=== PATIENT | female | born 1980 | race Caucasian/White ===

== ENCOUNTER 2019-07-18 19:34 | Observation (INO) | payer OTHER ==
--- NOTE | 2019-07-18 20:21 | ED ---
Neurological HPI - HPI Summary HPI Summary: 39-year-old female with a significant past medical history of chronic back pain and status post cholecystectomy, tubal ligation, uterine polypectomy presents to emergency department today as a transfer from [place] emergency Department for evaluation of a syncopal episode she had this afternoon. Patient states 4 days ago she began having right eye twitching and headaches which lasted minutes the posterior aspect of her head. Today she states she was in class when she had another venous headaches and her vision became blurry which she describes as Vaseline in my eyein the right eye. She states she stood up to leave to rinse her eye and then syncopized in her classroom. She does not recall if she lost consciousness however she does not recall the event. She reports no trauma sustained during her syncopal episode. She denies incontinence , or confusion after her event. She is complaining of continued blurry vision in the right eye but has no other complaints and has no physical pain. She endorses a past medical history of migraines and states she has not had one in a very long time. Last menstrual period was one week ago. She denies personal or family history of demyelinating disease, dysrhythmia, CVA. at the [facility] laboratory studies were obtained including a CBC which was normal. A CMP which revealed a chloride of 112, anion gap of 5, AST 14. Urine hCG was negative. Urinalysis was negative for signs of UTI. CT without contrast the brain was negative for signs of infarct or bleed. - History of Current Complaint Chief Complaint: EDGeneral Stated Complaint: NEURO EVAL PER EMS Time Seen by Provider: 07/18/19 19:49 Hx Obtained From: Patient Hx Last Menstrual Period: 05/29/14 Onset/Duration: Gradual Onset Timing: Constant Onset Severity: Mild Current Severity: Mild Pain Intensity: 7 Pain Scale Used: 0-10 Numeric Character: Sharp, Throbbing, Visual Changes Syncope Context: Witnessed Frequency: Episodes x___ - 1 Aggravating: Headaches Alleviating: Rest Associated Signs and Symptoms: Positive: Visual Changes, Headache, Loss of Consciousness. Negative: Memory Loss, Confusion, Agitation, Weakness, Decreased Level of Consciousness, Pain, Impaired Speech, Numbness, Incontinent Bladder/Bowel, Lightheadness, Nausea/Vomiting, Neck Pain/Stiffness, Diarrhea, Chest Pain, Shortness of Breath, Palpitations, Epistaxis, Change in Diet, OTC Meds, Depression, Anxiety, Emotional Distress - Allergy/Home Medications Allergies/Adverse Reactions: Allergies Allergy/AdvReac Type Severity Reaction Status Date / Time latex Allergy Hives Verified 07/19/19 01:56 Penicillins Allergy Hives Verified 07/19/19 01:56 Sulfa (Sulfonamide Allergy Hives Verified 07/19/19 01:56 Antibiotics) Home Medications: Home Medications Cyclobenzaprine TAB* [Flexeril 10 MG TAB*] 10 mg PO DAILY 07/18/19 [History Confirmed 07/18/19] Gabapentin CAP(*) [Neurontin 100 mg CAP(*)] 300 mg PO TID 07/18/19 [History Confirmed 07/18/19] Oxycodone IR 10 MG(NF) 1 - 2 tab PO Q6H 07/18/19 [History Confirmed 07/18/19] oxyCODONE SR TAB(*) [Oxycontin 20 mg (*)] 20 mg PO BID 07/18/19 [History Confirmed 07/18/19] PMH/Surg Hx/FS Hx/Imm Hx Endocrine/Hematology History: Denies: Hx Diabetes, Hx Thyroid Disease Cardiovascular History: Denies: Hx Hypertension, Hx Pacemaker/ICD Respiratory History: Denies: Hx Asthma Sensory History: Denies: Hx Hearing Aid Psychiatric History: Denies: Hx Panic Disorder - Surgical History Surgery Procedure, Year, and Place: (2) D&C, TUBAL LIGATION, T&A, LITHOTRIPSY Infectious Disease History: No Infectious Disease History: Denies: Traveled Outside the [place] in Last 30 Days - Social History Alcohol Use: None Substance Use Type: Reports: None Smoking Status (MU): Heavy Every Day Tobacco Smoker Type: Cigarettes Amount Used/How Often: 1/2 pack day Review of Systems Constitutional: Negative Positive: Blurred Vision. Negative: Photophobia, Diplopia, Drainage ENT: Negative Cardiovascular: Negative Respiratory: Negative Gastrointestinal: Negative Genitourinary: Negative Musculoskeletal: Negative Skin: Negative Positive: Headache, Syncope. Negative: Weakness, Paresthesia, Numbness, Slurred Speech Psychological: Normal All Other Systems Reviewed And Are Negative: Yes Physical Exam Triage Information Reviewed: Yes Vital Signs On Initial Exam: Initial Vitals Temp Pulse Resp BP Pulse Ox 98.7 F 86 16 131/88 97 07/18/19 19:43 07/18/19 19:43 07/18/19:43 07/18/19 19:43 07/18/19 19:43 Vital Signs Reviewed: Yes Appearance: Positive: Well-Appearing, No Pain Distress, Well-Nourished, Obese. Negative: Signs of Trauma Skin: Positive: Warm, Skin Color Reflects Adequate Perfusion Head/Face: Positive: Normal Head/Face Inspection Eyes: Positive: EOMI, CIRILO, Conjunctiva Clear, Conjunctiva Inflammed, Other: - Visual acuity is 20/20 in the left eye and 20/70 in the right eye and 20/30 with both eyes. She has significantly decreased field of vision in her peripheral view however she has reserved central vision in the right eye. There are no abnormalities left eye. Funduscopic exam revealed no abnormalities bilaterally. ENT: Positive: Hearing grossly normal Neck: Positive: Nontender Respiratory/Lung Sounds: Positive: Clear to Auscultation, Breath Sounds Present Cardiovascular: Positive: RRR, S1, S2 Abdomen Description: Positive: Nontender, Soft Bowel Sounds: Positive: Present Neurological: Positive: Sensory/Motor Intact, Alert, Oriented to Person Place, Time, CN Intact II-III, Reflexes Intact, Normal Gait, Heel to Toe, Finger to Nose, Facial Symmetry, Speech Normal. Negative: Receptive Aphasia, Expressive Aphasia, Cerebellar Dysfunction, EOM Palsy, Slurred Speech, Ataxic Gait, Pronator Drift Present Psychiatric: Positive: Normal AVPU Assessment: Alert Procedures - Sedation Patient Received Moderate/Deep Sedation with Procedure: No Diagnostics - Vital Signs Vital Signs Temp Pulse Resp BP Pulse Ox 07/18/19 19:43 98.7 F 86 16 131/88 97 - Laboratory Lab Statement: Any lab studies that have been ordered have been reviewed, and results considered in the medical decision making process. Course/Dx - Course Course Of Treatment: Patient was evaluated in the emergency department today as a transfer from [place] emergency department after a syncopal episode this afternoon. The patient was seen and examined. Physical exam revealed visual field deficits in the right eye but no other focal neurological deficits. Visual acuity in the left eye was 20/20 in visual acuity in the right eye was 20 /70 visual acuity in both eyes 20/30. Laboratory studies were done at [facility] department including a CBC which was normal, a CMP which revealed a chloride of 112, anion gap of 5, AST of 14. BUNs 7, creatinine 0.8, estimated GFR is 84.9. Urine hCG was negative. Urinalysis is negative for signs of UTI. CT without contrast the brain was negative for signs of infarct or bleed. The neurologist Dr. Le was consulted and recommended getting and ESR and a CTA of head and neck invested possible LVO. ESR normal at 5, not indicating temporal arteritis. he suggested starting the patient on aspirin 325. Dr. Julio, ophthalmology, was consulted at 2209 and stated he felt there was no acute emergency and he could examine her in his clinic at a later time for further evaluation. CTA of the brain and neck came back showing no evidence of LVO or other pathology. Dr. Le suggested admitting the patient due to her acute visual change for follow up with an MRI in the morning. He will evaluate the patient in the morning as well. Hospitalist, Dr. La came to evaluate the patient for admisison at 0107 in 07/19/19. - Differential Dx Differential Diagnoses Neuro: Positive: Anxiety, Cerebrovascular Accident, Seizure Disorder, Trauma, Other - Retinal artery occlusion, retinal vein occlusion, retinal detachment, CVA, TIA, temporal arteritis, and Restasis, multiple sclerosis. - Diagnoses Provider Diagnoses: Syncope, Vision blurred - Physician Notifications Discussed Care Of Patient With: Montana Le Instructed by Provider To: Admit As Inpatient Discharge ED - Sign-Out/Discharge Documenting (check all that apply): Patient Departure - Discharge Plan Condition: Stable Disposition: ADMITTED TO [facility] Referrals: Irina Collazo [Nurse Practitioner] - - Billing Disposition and Condition Condition: STABLE Disposition: Admitted to [facility]
--- OUTSIDE RECORDS SUMMARY | 2019-07-18 20:54 | XMS REPORT | Continuity of Care Document ---
:1980 External Reference #:[id number] Author Name Garo Herrera MD,FACS Address [address] [place] [id number] Care Team Providers Name Role Phone Shilpa Ron NP - Nurse Care Team Information Personal Financial Advisor [phone] Practitioner Montana Call MD - Emergency Medicine Care Team Information Personal Financial Advisor [phone] Problems Active Problems Provider Date Disorder of menstruation Karla Brush MD Onset: 07/19/2011 Migraine variants, not intractable Karla Brush MD Onset: 07/19/2011 Backache Karla Brush MD Onset: 07/19/2011 Tobacco user Shilpa Ron FNP Onset: 04/13/2018 Migraine with typical aura Shilpa Ron FNP Onset: 04/13/2018 H/O: urinary stone Shilpa Ron FNP Onset: 04/13/2018 Gallstone Garo Herrera MD,FACS Onset: 06/01/2019 Gastroesophageal reflux disease Shilpa Ron FNP Onset: 12/08/2018 Social History Type Date Description Comments Sex Unknown ETOH Use Denies alcohol use Tobacco Use Start: Unknown Heavy tobacco smoker (more started smoking age than 10 cigarettes/day) 15, quit for 8 years in her 20's using OTC patches Smoking Status Reviewed: 05/09/19 Heavy tobacco smoker (more started smoking age than 10 cigarettes/day) [age], quit for 8 years in her 20's using OTC patches Allergies, Adverse Reactions, Alerts Active Allergies Reaction Severity Comments Date Penicillin 04/13/2018 Sulfa Drugs 04/13/2018 Latex 04/13/2018 Medications Active Medications SIG Qnty Indications Ordering Date Provider Gabapentin 3 tabs by Unknown 100mg Capsules mouth every day Oxycontin 1 tab by mouth Vivek Mckeon MD 10mg Tab ER 12H twice a day Abuse-Det Oxycodone HCL ER Take 1-2 Vivek Mckeon MD 10mg Tab tablets every ER 12H Abuse-Det 6-8 hours Cyclobenzaprine HCL 1 by mouth once Unknown 10mg a day Tablets Valium take 2 tab Unknown 5mg Tablets prior to dental exam Sucralfate take one tablet 120tabs Clune, 1gm Tablets four times a , . [employer]OR Ondansetron HCL Unknown 4mg Tablets Immunizations CPT Code Status Date Vaccine Lot # [id number] Given 06/14/2018 Tdap injection [id number] Given 06/23/2011 flu vaccination 15675 Given 06/23/2011 flu vaccination [id number] Given 05/10/2009 flu vaccination Vital Signs Date Vital Result Comment 07/05/2019 9:03am BP Systolic 121 mmHg BP Diastolic 80 mmHg Heart Rate 95 /min Height 66 inches 5'6" Weight 203.00 lb BMI (Body Mass Index) 32.8 kg/m2 BSA (Body Surface Area) 2.01 m2 Rocky body weight in kilograms 59 kg O2 % BldC Oximetry 97 % 06/01/2019 9:22am BP Systolic 116 mmHg BP Diastolic 80 mmHg Body Temperature 98.4 F Heart Rate 126 /min Height 66 inches 5'6" Weight 205.00 lb BMI (Body Mass Index) 33.1 kg/m2 BSA (Body Surface Area) 2.02 m2 Rocky body weight in kilograms 59 kg O2 % BldC Oximetry 98 % Results Test Acquired Date Facility Test Result H/L Range Note Ua RFX Micro & 05/30/2019 PSYCHIATRIC Urine Color Light-Yellow Yellow 1 Culture II [address] [place] [address] [phone] Urine Clarity Clear Clear Urine Glucose - Dipstick NEGATIVE mg/dL Negative Urine Bilirubin - Dipstick NEGATIVE Negative Urine Ketone NEGATIVE mg/dL Negative Urine Specific [place] 1.011 Normal 1.010-1.030 Urine Blood NEGATIVE 0-2 Urine PH 7.5 Normal 6.5-7.5 Urine Protein - Dipstick NEGATIVE mg/dL Negative Urine Urobilinogen - Dipstick < 2.0 mg/dL < 2.0 Urine Nitrite - Dipstick NEGATIVE Negative Urine Leuk Esterase NEGATIVE Negative Source: URINE, CLEAN CAT <SEE NOTE> 2 CBC W/Automated 05/30/2019 PSYCHIATRIC White Blood 10.3 K/uL Normal 3.1-10.[address] [place] [address] [phone] Red Blood Count 5.26 M/uL Normal 3.90-5.40 Hemoglobin 15.1 gm/dL Normal 11.6-15.8 Hematocrit 44.4 % Normal 36.0-46.1 Mean Cell Volume 84.4 fl Normal 80.9-99.0 Mean Corpuscular HGB 28.7 pg Normal 25.9-32.7 Mean Corpuscular HGB Conc 34.0 g/dL Normal 30.8-34.3 Platelet Count 322 K/uL Normal 155-360 Red Cell Distri Width SD 41.1 fl Normal 36-47 Red Cell Distri Width %CV 13.3 % Normal 11.7-14.4 Mean Platelet Volume 9.9 fl Normal 8.9-12.4 Neut% 65.5 % Normal 40.4-72.8 Lymph % 24.0 % Normal 20.0-42.0 Cameron % 7.8 % Normal 4.3-13.2 Eo% 1.7 % Normal 0.0-6.6 Bas% 0.6 % Normal 0.0-1.1 Immature Grans 0.4 % Normal 0.0-5.0 NRBC % 0.0 /100WBC < 10/ 100 WBC Neut# 6.75 K/uL Normal 1.8-7.0 Lymph # 2.47 K/uL Normal 1.0-4.0 Cameron # 0.80 K/uL Normal 0.3-0.9 Eos # 0.17 K/uL Normal 0.0-0.5 Baso # 0.06 K/uL Normal 0.0-0.1 Immature Grans Absolute 0.04 K/uL NRBC # 0.00 K/uL Comprehensive Metabolic 05/30/2019 PSYCHIATRIC Glucose 137 mg/dL High 74-106 Panel [address] [place], [place] [id number] [phone] BUN 10 mg/dL Normal 7-18 Creatinine 1.0 mg/dL Normal 0.6-1.3 Glom Filtration Rate, Estimate >60 mL/min >60 If >60 mL/min >60 3 BUN/Creat 10.0 ratio Sodium 138 mmol/L Normal 136-145 Potassium 3.8 mmol/L Normal 3.5-5.1 Chloride 104 mmol/L Normal 98-107 Carbon Dioxide 27 mmol/L Normal 21-32 Anion Gap 7 mEq/L Low 8-16 Calcium 8.9 mg/dL Normal 8.5-10.1 Total Protein 7.9 g/dL Normal 6.4-8.2 Albumin 3.6 g/dL Normal 3.4-5.0 Globulin 4.3 g/dL Normal 1.9-4.3 Alb/Glob 0.8 ratio Bilirubin,Total 0.2 mg/dL Normal 0.2-1.0 Sgot/Ast 11 U/L Low 15-37 4 SGPT/Alt 16 U/L Normal 12-78 Alkaline Phosphatase 71 U/L Normal 45-117 Laboratory test finding 05/30/2019 PSYCHIATRIC Lipase 80 U/L Normal 56-289 [address] [place] [address] [phone] HCG,Serum (Qualitative) NEGATIVE (Negative) 5 Comprehensive 05/09/2019 [facility] Fabiola Glucose 101 mg/dL Normal 74- 106 6 Metabolic Panel [address] [place] [address] [phone] BUN 12 mg/dL Normal 7-18 Creatinine 0.8 mg/dL Normal 0.6-1.3 Glom Filtration Rate, Estimate >60 mL/min >60 If >60 mL/min >60 7 BUN/Creat 15.0 ratio Sodium 136 mmol/L Normal 136-145 Potassium 4.2 mmol/L Normal 3.5-5.1 Chloride 102 mmol/L Normal 98-107 Carbon Dioxide 27 mmol/L Normal 21-32 Anion Gap 7 mEq/L Low 8-16 Calcium 8.9 mg/dL Normal 8.5-10.1 Total Protein 7.7 g/dL Normal 6.4-8.2 Albumin 3.6 g/dL Normal 3.4-5.0 Globulin 4.1 g/dL Normal 1.9-4.3 Alb/Glob 0.9 ratio Bilirubin,Total 0.2 mg/dL Normal 0.2-1.0 Sgot/Ast 17 U/L Normal 15-37 SGPT/Alt 22 U/L Normal 12-78 Alkaline Phosphatase 62 U/L Normal 45-117 Laboratory test finding 05/09/[address] [facility] [address] Lipase 94 U/L Normal 56-289 [address] [place] [address] [phone] Amylase 53 U/L Normal 25-115 H Pylori,Igm,Igg,Iga 05/09/[address] Helicobacter 0.51 0.00- 0.79 8 Antibodies [address] [facility] Pylori, Igg u/mL [place], [place] [id number] [phone] Helicobacter Pylori, Iga Abs < 9.0 units 0.0-8.9 9 Helicobacter Pylori, Igm Abs < 9.0 units 0.0-8.9 10 Urine Dipstick 05/09/2019 [facility] Ua Color yellow Yellow Ua Clarity clear Clear Ua Leuko negative Negative Ua Nitrite negative Negative Ua Urobilinogen 0.2 0.2 - 1.0 E.U./dL Ua Protein negative Negative Ua PH 8.5 High 6.5-7.5 Ua Blood 10 Gael/uL High Negative Ua Specific [place] 1.010 1.010-1.030 Ua Ketones negative Negative Ua Bilirubin negative Negative Ua Glucose negative Negative 1 GALLBLADDER PAIN AND SWELLING 2 URINE, CLEAN CATCH 3 Note: Persistent reduction for 3 months or more in an eGFR <60 mL/min/1.73 m2 defines CKD. Patients with eGFR values >/=60 mL/min/1.73 m2 may also have CKD if evidence of persistent proteinuria is present. The original MDRD equation for estimated GFR is not valid for patients less than 18 years of age. Additional information may be found at www.kdoqi.org. 4 Values below the stated reference ranges of AST and ALT can be seen in normal populations. Clinical correlation is suggested. 5 Method: [employer] One-Step Immunoassay 6 R10.11 7 Note: Persistent reduction for 3 months or more in an eGFR <60 mL/min/1.73 m2 defines CKD. Patients with eGFR values >/=60 mL/min/1.73 m2 may also have CKD if evidence of persistent proteinuria is present. The original MDRD equation for estimated GFR is not valid for patients less than 18 years of age. Additional information may be found at www.kdoqi.org. 8 INFCE Result Units: Index Value Negative <0.80 Equivocal 0.80 - 0.89 Positive >0.89 9 Negative <9.0 Equivocal 9.0 - 11.0 Positive >11.0 10 Negative <9.0 Equivocal 9.0 - 11.0 Positive >11.0 This test was developed and its performance characteristics determined by [employer]. It has not been cleared or approved by the Food and Drug Administration. Performed at: - [address] [id number] Agricultural Technician: Staci Moreira MD, Phone: [phone] Procedures Date Code Description Status 06/16/2019 44358 Laparoscopy; cholecystectomy Completed 05/19/2019 87798160 Mammogram Completed Medical Devices Description No Information Available Encounters Type Date Location Provider Dx Diagnosis Office Visit 06/01/2019 Surgical Office Garo Herrera, K80.20 Calculus of 9:00a [employer] gallbladder w/o cholecystitis w/o obstruction Office Visit 05/09/2019 Family Medicine Clune, R10.11 Right upper quadrant 11:[address] [place], pain [employer]OR R11.2 Nausea with vomiting, unspecified Assessments Date Code Description Provider 07/05/2019 K80.20 Calculus of gallbladder without Garo Herrera MD,LANEY cholecystitis without obstruction 06/16/2019 K80.20 Calculus of gallbladder without Garo Herrera MD,LANEY cholecystitis without obstruction 06/01/2019 K80.20 Calculus of gallbladder without Garo Herrera MD,LANEY cholecystitis without obstruction 05/30/2019 R10.811 Right upper quadrant abdominal Garo Herrera MD,LANEY tenderness 05/30/2019 K80.50 Calculus of bile duct without Garo Herrera MD,LANEY cholangitis or cholecystitis without obstruction 05/30/2019 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 healing well, doing well. pathology report was reviewed and discussed with the patient. RTC prn Functional Status Functional Condition Comment Date Status Contacts Active Complete Dentures Active Mental Status Description No Information Available Referrals Refer to Dr Reason for Referral Status Appt Date Garo Herrera MD 38YOF with RUQ - U/S shows gallstones but no Closed 06/01 acute cholecystitis. [address] [place] [address] [phone]
--- OUTSIDE RECORDS SUMMARY | 2019-07-18 20:54 | XMS REPORT | Continuity of Care Document ---
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 VESNA Ondansetron HCL Unknown 4mg Tablets Immunizations CPT Code Status Date Vaccine Lot # [id number] Given 06/14/2018 Tdap injection [id number] 26043 Given 06/23/2011 flu vaccination 67673 Given 06/23/2011 flu vaccination 31770 Given 05/10/2009 flu vaccination Vital Signs Date Vital Result Comment 06/01/2019 9:22am BP Systolic 116 mmHg BP Diastolic 80 mmHg Body Temperature 98.4 F Heart Rate 126 /min Height 66 inches 5'6" Weight 205.00 lb BMI (Body Mass Index) 33.1 kg/m2 BSA (Body Surface Area) 2.02 m2 [place] body weight in kilograms 59 kg O2 % BldC Oximetry 98 % 05/09/2019 11:47am BP Systolic 120 mmHg BP Diastolic 74 mmHg Body Temperature 98.8 F Heart Rate 133 /min Respiratory Rate 18 /min Height 66 inches 5'6" Weight 209.12 lb BMI (Body Mass Index) 33.7 kg/m2 BSA (Body Surface Area) 2.04 m2 [place] body weight in kilograms 59 kg O2 % BldC Oximetry 93 % Results Test Date Facility Test Result H/L Range Note Ua RFX Micro & 05/30/2019 [facility] Urine Color Light-Yellow Yellow 1 Culture II [address] [place] [address] [phone] Urine Clarity Clear Clear Urine Glucose - Dipstick NEGATIVE mg/dL Negative Urine Bilirubin - Dipstick NEGATIVE Negative Urine Ketone NEGATIVE mg/dL Negative Urine Specific [place] 1.011 Normal 1.010-1.030 Urine Blood NEGATIVE 0-2 Urine PH 7.5 Normal 6.5-7.5 Urine Protein - Dipstick NEGATIVE mg/dL Negative Urine Urobilinogen - Dipstick < 2.0 mg/dL < 2.0 Urine Nitrite - Dipstick NEGATIVE Negative Urine Leuk Esterase NEGATIVE Negative Source: URINE, CLEAN CAT <SEE NOTE> 2 CBC W/Automated 05/30/2019 [facility] White Blood 10.3 K/uL Normal 3.1-10.[address] [place], [place] [id number] [phone] Red Blood Count 5.26 M/uL Normal 3.90-5.40 [...] 40.4-72.8 Lymph % 24.0 % Normal 20.0-42.0 [place] % 7.8 % Normal 4.3-13.2 Eo% 1.7 % Normal 0.0-6.6 Bas% 0.6 % Normal 0.0-1.1 Immature Grans 0.4 % Normal 0.0-5.0 NRBC % 0.0 /100WBC < 10/ 100 WBC Neut# 6.75 K/uL Normal 1.8-7.0 Lymph # 2.47 K/uL Normal 1.0-4.0 [place] # 0.80 K/uL Normal 0.3-0.9 Eos # 0.17 K/uL Normal 0.0-0.5 Baso # 0.06 K/uL Normal 0.0-0.1 Immature Grans Absolute 0.04 K/uL NRBC # 0.00 K/uL Comprehensive Metabolic 05/30/2019 [facility] Glucose 137 mg/dL High 74-106 Panel [address] [place] [address] [phone] BUN 10 mg/dL Normal 7-18 Creatinine 1.0 [...] U/L Normal 45-117 Laboratory test finding 05/30/2019 [facility] Lipase 80 U/L Normal 56-289 [address] [place] [address] [phone] HCG,Serum (Qualitative) NEGATIVE (Negative) 5 Comprehensive 05/09/[address] [facility] [address] Glucose 101 mg/dL Normal 74- 106 6 Metabolic Panel [address] [place] [address] [phone] BUN 12 mg/dL Normal 7-18 Creatinine 0.8 [...] U/L Normal 45-117 Laboratory test finding 05/09/[address] [facility] [address] Lipase 94 U/L Normal 56-289 [address] [place] [address] [phone] Amylase 53 U/L Normal 25-115 H Pylori,Igm,Igg,Iga 05/09/[address] [facility] [address] Helicobacter 0.51 0.00- 0.79 8 Antibodies 40[address] [facility] Pylori, Igg u/[place] [address] [phone] Helicobacter Pylori, Iga Abs < 9.0 units 0.0-8.9 9 Helicobacter Pylori, Igm Abs < 9.0 units 0.0-8.9 10 Urine Dipstick 05/09/2019 [facility] Ua Color yellow Yellow Ua Clarity clear Clear Ua Leuko negative Negative Ua Nitrite negative Negative Ua Urobilinogen 0.2 0.2 - 1.0 E.U./dL Ua Protein negative Negative Ua PH 8.5 High 6.5-7.5 Ua Blood 10 Gael/uL High Negative Ua Specific [place] 1.010 1.010-1.030 Ua Ketones negative Negative Ua [...] populations. Clinical correlation is suggested. 5 Method: [employer] One-Step Immunoassay 6 R10.11 7 Note: Persistent [...] developed and its performance characteristics determined by [employer]. It has not been cleared or approved by the Food and Drug Administration. 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 R11.2 Nausea with vomiting, unspecified Office 12/08/2018 [facility] [place] K21.9 Gastro-esophageal Visit 1:15p [facility] [place] VESNA Massey reflux disease RD without esophagitis R10.11 Right upper quadrant pain M54.5 Low back pain Assessments Date Code Description Provider 06/01/2019 K80.20 Calculus of gallbladder without Garo Herrera MD,FACS cholecystitis without obstruction 05/09/2019 R10.11 Right upper quadrant pain Shilpa Ron FNP 05/09/2019 R11.2 Nausea with vomiting, unspecified Shilpa Ron FNP 12/08/2018 K21.9 Gastro-esophageal reflux disease without Shilpa Ron FNP esophagitis 12/08/2018 R10.11 Right upper quadrant pain Shilpa Ron FNP 12/08/2018 M54.5 Low back pain Shilpa Ron FNP Plan of Treatment Future Appointment(s):06/09/2019 1:15 pm - Shilpa Ron FNP at [facility] RD06/01/2019 - Garo Herrera MD,FACSK80.20 Calculus of gallbladder without cholecystitis without obstructionComments:i discussed the options with her and she would like to undergo"laparoscopic cholecystectomy with cholangiography, possible open"Risks and benefits of the procedure were discussed with the patient. Risks include, but are not limited to, infection, bleeding, organ or tissue damage or malfunction, allergy, and potentially . Patient understood and agreed to the procedure.before surgery, we will needrecommendation from her pain management clinic on what to use for pain control after surgery or whether they would like to provide her with prescription is up to them Functional Status Functional Condition Comment Date Status Contacts Active Complete Dentures Active Mental Status Description No Information Available Referrals Refer to Reason for Referral Status Appt Date Garo Herrera MD 38YOF with RUQ - U/S shows gallstones but no Scheduled acute cholecystitis. [address] [place] [address] [phone]
--- OUTSIDE RECORDS SUMMARY | 2019-07-18 20:54 | XMS REPORT | Continuity of Care Document ---
:1980 External Reference #:[id number] Author Name Garo Herrera MD,FACS (transmitted by agent of provider Sherylcj Crawford) Address [address] [place] [id number] Care Team Providers Name Role Phone Shilpa Ron NP - Nurse Care Team Information Rn Spine [phone] Practitioner [place] Call MD - Emergency Medicine Care Team Information Rn Spine Problems Active Problems Provider Date Disorder of [...] (more started smoking age than 10 cigarettes/day) 15/, quit for 8 years in her 20's [...] 120tabs Clune, 1gm Tablets four times a Nicholeniferlei, day. VESNA Ondansetron HCL Unknown 4mg Tablets Immunizations CPT Code Status Date Vaccine Lot # [id number] Given 06/14/2018 Tdap injection [id number] Given 06/23/2011 flu vaccination 56055 Given 06/23/2011 flu vaccination 48954 Given 05/10/2009 flu vaccination Vital Signs Date Vital Result Comment 06/01/2019 9:22am BP Systolic 116 mmHg BP Diastolic 80 mmHg Body Temperature 98.4 F Heart Rate 126 /min Height 66 inches 5'6" Weight 205.00 lb BMI (Body Mass Index) 33.1 kg/m2 BSA (Body Surface Area) 2.02 m2 [place] body weight in kilograms 59 kg O2 % BldC Oximetry 98 % 05/09/2019 11:47am BP Systolic 120 mmHg BP Diastolic 74 mmHg Body Temperature 98.8 F Heart Rate 133 /min Respiratory Rate 18 /min Height 66 inches 5'6" Weight 209.12 lb BMI (Body Mass Index) 33.7 kg/m2 BSA (Body Surface Area) 2.04 m2 [place] body weight in kilograms 59 kg O2 % BldC Oximetry 93 % Results Test Date Facility Test Result H/L Range Note Ua RFX Micro & 05/30/2019 [facility] Urine Color Light-Yellow Yellow 1 Culture II [address] [place] [address] [phone] Urine Clarity Clear Clear Urine Glucose - Dipstick NEGATIVE mg/dL Negative Urine Bilirubin - Dipstick NEGATIVE Negative Urine Ketone NEGATIVE mg/dL Negative Urine Specific [place] 1.011 Normal 1.010-1.030 Urine Blood NEGATIVE 0-2 Urine PH 7.5 Normal 6.5-7.5 Urine Protein - Dipstick NEGATIVE mg/dL Negative Urine Urobilinogen - Dipstick < 2.0 mg/dL < 2.0 Urine Nitrite - Dipstick NEGATIVE Negative Urine Leuk Esterase NEGATIVE Negative Source: URINE, CLEAN CAT <SEE NOTE> 2 CBC W/Automated 05/30/2019 [facility] White Blood 10.3 K/uL Normal 3.1-10.[address] [place] [address] [phone] Red Blood Count 5.26 M/uL Normal 3.90-5.40 [...] 40.4-72.8 Lymph % 24.0 % Normal 20.0-42.0 [place] % 7.8 % Normal 4.3-13.2 Eo% 1.7 % Normal 0.0-6.6 Bas% 0.6 % Normal 0.0-1.1 Immature Grans 0.4 % Normal 0.0-5.0 NRBC % 0.0 /100WBC < 10/ 100 WBC Neut# 6.75 K/uL Normal 1.8-7.0 Lymph # 2.47 K/uL Normal 1.0-4.0 [place] # 0.80 K/uL Normal 0.3-0.9 Eos # 0.17 K/uL Normal 0.0-0.5 Baso # 0.06 K/uL Normal 0.0-0.1 Immature Grans Absolute 0.04 K/uL NRBC # 0.00 K/uL Comprehensive Metabolic 05/30/2019 [facility] Glucose 137 mg/dL High 74-106 Panel [address] [place], [place] [address] [phone] BUN 10 mg/dL Normal 7-18 Creatinine 1.0 [...] U/L Normal 45-117 Laboratory test finding 05/30/2019 [facility] Lipase 80 U/L Normal 56-289 [address] [place], [place] [address] [phone] HCG,Serum (Qualitative) NEGATIVE (Negative) 5 Comprehensive 05/09/[address] [facility] [address] Glucose 101 mg/dL Normal 74- 106 6 Metabolic Panel [address] [place], [place] [address] [phone] BUN 12 mg/dL Normal 7-18 Creatinine 0.8 [...] U/L Normal 45-117 Laboratory test finding 05/09/[address] [facility] [address] Lipase 94 U/L Normal 56-289 [address] [place], [place] [address] [phone] Amylase 53 U/L Normal 25-115 H Pylori,Igm,Igg,Iga 05/09/[address] [facility] [address] Helicobacter 0.51 0.00- 0.79 8 Antibodies [address] [facility] Pylori, Igg u/mL [place], [place] [address] [phone] Helicobacter Pylori, Iga Abs < 9.0 units 0.0-8.9 9 Helicobacter Pylori, Igm Abs < 9.0 units 0.0-8.9 10 Urine Dipstick 05/09/2019 [facility] Ua Color yellow Yellow Ua Clarity clear Clear Ua Leuko negative Negative Ua Nitrite negative Negative Ua Urobilinogen 0.2 0.2 - 1.0 E.U./dL Ua Protein negative Negative Ua PH 8.5 High 6.5-7.5 Ua Blood 10 Gael/uL High Negative Ua Specific [place] 1.010 1.010-1.030 Ua Ketones negative Negative Ua [...] populations. Clinical correlation is suggested. 5 Method: [employer] One-Step Immunoassay 6 R10.11 7 Note: Persistent [...] developed and its performance characteristics determined by [employer]. It has not been cleared or approved by the Food and Drug Administration. 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 R11.2 Nausea with vomiting, unspecified Assessments Date Code Description Provider 06/16/2019 K80.20 Calculus of gallbladder without Garo Herrera MD,LANEY cholecystitis without obstruction 06/01/2019 K80.20 Calculus of gallbladder without Garo Herrera MD,FACS cholecystitis without obstruction 05/30/2019 R10.811 Right upper quadrant abdominal Garo Herrera MD,FACS tenderness 05/30/2019 K80.50 Calculus of bile duct without Garo Herrera MD,FACS cholangitis or cholecystitis without obstruction 05/30/2019 Z79.891 long-term (current) use of opiate Sharon, Garo, MD,FACS analgesic 05/30/2019 F17.210 Nicotine dependence, cigarettes, Garo Herrera MD,FACS uncomplicated 05/09/2019 R10.11 Right upper quadrant pain Nichole Rondawnarafi, VESNA 05/09/2019 R11.2 Nausea with vomiting, unspecified Shilpa Ron, VESNA Plan of Treatment 06/01/2019 - Garo Herrera MD,FACSK80.20 Calculus of gallbladder [...] her with prescription is up to them on 2019. i talked to Dr. Mckeon about the patient and his recommendation is to give her Oxycodone 10 mg po BID prn after surgery atotal of 10 tablets. Functional Status Functional Condition Comment Date Status Contacts Active Complete Dentures Active Mental Status Description No Information Available Referrals Refer to Reason for Referral Status Appt Date Garo Herrera MD 38YOF with RUQ - U/S shows gallstones but no Closed 06/01 acute cholecystitis. [address] [place] [address] [phone]
--- OUTSIDE RECORDS SUMMARY | 2019-07-18 20:54 | XMS REPORT | Continuity of Care Document ---
:1980 External Reference #:[id number] Author Name Vivek Mckeon DO MPH Address [address] [place] [address], [address] [place] [address] Care Team Providers Name Role Phone Elliott Evans M.D. 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 Problems Description No Information Available Social History Type Date Description Comments Sex Unknown Cigarette Use Current Cigarette Smoker 1/2 Pack Daily ETOH Use Denies alcohol use Tobacco Use Start: Unknown Patient is a current smoker, smokes every day Smoking Status Reviewed: 06/20/19 Patient is a current smoker, smokes every day Allergies, Adverse Reactions, Alerts Active Allergies Reaction Severity Comments Date Penicillin Urticaria 12/19/2014 Sulfa Antibiotics Urticaria 12/19/2014 Medications Active Medications SIG Qnty Indications Ordering Date Provider Gabapentin take 2-3 270caps Vivek Mckeon, 05/25/2018 100mg Capsules capsules by DO MPH mouth every 8 hours ud. chronic pain, titrating dose Oxycontin si by mouth 60tabs Vivek Mckeon, 05/25/2018 20mg Tab ER 12H every 12 hours DO, MPH Abuse-Det chronic pain patient Cyclobenzaprine HCL si by mouth 30tabs Vivek Mckeon, 05/13/2017 10mg every evening as DO, MPH Tablets directed chronic pain. Oxycodone HCL si-2 by mouth 180tabs Vivek Mckeon, 08/28/2015 10mg Tablets every 6 to 8 DO, MPH hours as directed chronic pain patient, dosage increase Valium si-2 by mouth Unknown 5mg Tablets 1 hour before procedure as directed prn Chantix Starting Month Unknown Waylon 0.5mg X 11 & 1 mg X 42 Tablets Sucralfate 1000mg four Unknown 1gm Tablets times a day Pantoprazole Sodium 1 by mouth every Unknown 40mg day Tablets DR Barbosa Description No Information Available Vital Signs Date Vital Result Comment 06/20/2019 9:37am BP Systolic 130 mmHg BP Diastolic 86 mmHg Heart Rate 84 /min Respiratory Rate 20 /min Height 66 inches 5'6" Weight 202.00 lb Pain Level 8 Pain at this time. Pain Level With Medicine 7 on average with meds Pain Level Without Medicine 9 without meds BMI (Body Mass Index) 32.6 kg/m2 05/24/2019 10:03am BP Systolic 128 mmHg BP Diastolic 78 mmHg Heart Rate 74 /min Respiratory Rate 20 /min Height 66 inches 5'6" Weight 202.00 lb Pain Level 6 Pain at this time. 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.891 snf (current) use of opiate analgesic Office Visit 04/25/2019 2:15p Main Office as Vivek Mckeon G89.21 Chronic pain due Of 10/01/13 , MPH to trauma M54.5 Low back pain M54.16 Radiculopathy, lumbar region Z79.891 snf (current) use of opiate analgesic Z79.891 snf (current) use of opiate analgesic Office Visit 03/25/2019 9:30a Main Office as Vivek Mckeon G89.21 Chronic pain due Of 10/01/13 DO, MPH to trauma M54.5 Low back pain M54.16 Radiculopathy, lumbar region Z79.891 snf (current) use of opiate analgesic Z79.891 snf (current) use of opiate analgesic Office Visit 02/24/2019 9:45a Main Office as Vivek Mckeon G89.21 Chronic pain due Of 10/01/13 DO, MPH to trauma M54.5 Low back pain M54.16 Radiculopathy, lumbar region 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 Office Visit 02/08/2019 9:30a Main Office as Vivek Mckeon G89.21 Chronic pain due Of 10/01/13 DO, MPH to trauma M54.5 Low back pain M54.16 Radiculopathy, lumbar region Z79.891 snf (current) use of opiate analgesic 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 Office Visit 01/27/2019 9:45a Main Office as Vivek Mckeon G89.21 Chronic pain due Of 10/01/13 DO, MPH to trauma M54.5 Low back pain M54.16 Radiculopathy, lumbar region 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 Z71.89 Other specified counseling 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 Office Visit 12/29/2018 9:00a Main Office as Vivek Mckeon G89.21 Chronic pain due Of 10/01/13 DO, MPH to trauma M54.5 Low back pain M54.16 Radiculopathy, lumbar region Z79.891 snf (current) use of opiate analgesic 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 Assessments Date Code Description Provider 06/20/2019 G89.21 Chronic pain due to trauma Vivek Mckeon DO, MPH 06/20/2019 M54.5 Low back pain Vivek Mckeon DO, MPH 06/20/2019 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 Vivek Mckeon DO, MPH 05/24/2019 G89.21 Chronic pain due to trauma Vivek Mckeon DO, MPH 05/24/2019 M54.5 Low back pain Vivek Mckeon DO, MPH 05/24/2019 Z79.891 snf (current) use of opiate analgesic Mckeon, Vivek , DO, MPH 05/24/2019 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 Mckeon, Vivek , DO, MPH 04/25/2019 G89.21 Chronic pain due to trauma Mckeon, Vivek, DO, MPH 04/25/2019 M54.5 Low back pain Mckeon, Vivek, DO, MPH 04/25/2019 M54.16 Radiculopathy, lumbar region Mckeon, Vivek, DO, MPH 04/25/2019 Z79.891 snf (current) use of opiate analgesic Mckeon, Vivek , DO, MPH 04/25/2019 Z79.891 snf (current) use of opiate analgesic Mckeon, Vivek , DO, MPH 03/25/2019 G89.21 Chronic pain due to trauma Mckeon, Vivek, DO, MPH 03/25/2019 M54.5 Low back pain Mckeon, Vivek, DO, MPH 03/25/2019 M54.16 Radiculopathy, lumbar region Mckeon, Vivek, DO, MPH 03/25/2019 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 Mckeon, Vivek , DO, MPH 03/25/2019 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 Mckeon, Vivek , DO, MPH 02/24/2019 G89.21 Chronic pain due to trauma Mckeon, Vivek, DO, MPH 02/24/2019 M54.5 Low back pain Mckeon, Vivek, DO, MPH 02/24/2019 M54.16 Radiculopathy, lumbar region Mckeon, Vivek, DO, MPH 02/24/2019 Z79.891 snf (current) use of opiate analgesic Mckeon, Vivek , DO, MPH 02/24/2019 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 Mckeon, Vivek , DO, MPH 02/08/2019 G89.21 Chronic pain due to trauma Mckeon, Vivek, DO, MPH 02/08/2019 M54.5 Low back pain Mckeon, Vivek, DO, MPH 02/08/2019 M54.16 Radiculopathy, lumbar region Mckeon, Vivek, DO, MPH 02/08/2019 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 Mckeon, Vivek , DO, MPH 02/08/2019 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 Mckeon, Vivek , DO, MPH 01/27/2019 G89.21 Chronic pain due to trauma Mckeon, Vivek, DO, MPH 01/27/2019 M54.5 Low back pain Mckeon, Vivek, DO, MPH 01/27/2019 M54.16 Radiculopathy, lumbar region Mckeon, Vivek, DO, MPH 01/27/2019 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 Mckeon, Vivek , DO, MPH 01/27/2019 Z71.89 Other specified counseling Mckeon, Vivek, DO, MPH 01/27/2019 Z79.891 snf (current) use of opiate analgesic Mckeon, Vivek , DO, MPH 12/29/2018 G89.21 Chronic pain due to trauma Mckeon, Vivek, DO, MPH 12/29/2018 M54.5 Low back pain Mckeon, Vivek, DO, MPH 12/29/2018 M54.16 Radiculopathy, lumbar region Mckeon, Vivek, DO, MPH 12/29/2018 Z79.891 snf (current) use of opiate analgesic Mckeon, Vivek , DO, MPH 12/29/2018 Z79.891 snf (current) use of opiate analgesic Mckeon, Vivek , DO, MPH Plan of Treatment Future Appointment(s):07/22/2019 9:30 am - MckeonVivek payan DO, MPH at Main Office as Of 10/01/1409 - Mckeon, Vivek, DO, MPHG89.21 Chronic pain due to traumaComments:Chronic. Symptoms and complaints discussed and reviewed today. No significant changes in physical findings. Continue current medical pain management.M54.5 Low back painComments:Chronic. Symptoms and complaints discussed and reviewed today.No changes in physical findings. Patient is stable and comfortable when current medical therapy is rendered.Z79.891 snf ( current) use of opiate analgesicNew Labs:Urine Drug Screen, Ordered: Comments:Urine drug screen sample taken. Rapid Point of Care Cup was reviewed in office with patient. Will send out UDT Rapid to [facility] lab for confirmation testing. Urine Drug Testing (UDT) was done today to monitor opiate use and to monitor possible use of illicit substances. I will discuss the results at the next appointment from the Quantitative lab.The following tests were ordered:6 AM, AMPH, LAILA, ТАТЬЯНА, BUP, CARIS, COCM, ETG, FENT, MCSHSG, OPI, OXY, PCP, TAPEN, XTSY, ZOLP. A urine drug test (UDT) using a rapid screen cup was ordered for this patient and collected on site today. Creatinine has been ordered as well for specimen validity, not for kidney function. Urine Drug Testing is a mandatory component of chronic opioid management, as part of the baseline assessment and ongoing re-assessment of opioid therapy. Per [place] [employer], [place] Non- Acute Pain Medical Treatment Guidelines, section F.3.d.i. This test is to be used in conjunction with other clinical information when decisions are to be made to continue, adjust or discontinue treatment. This information includes clinical observation, results of addiction screening, pill counts, and prescription drug monitoring reports. Preliminary UDT screen results are not final and should not be used to determine patient care or plan of treatment. This sample will be sent out for a more comprehensive quantitative confirmation LCMS study. It is part of the treatment process of prescribing controlled substances and is considered standard of care at this clinic.AllComments: Continue current medical pain management; injection therapy, osteopathic manipulation, PT / modalities, and consults as needed to manage chronic pain.Non - opioid pain management discussed and optionsdiscussed.Side effects discussed; anticipatory guidance given. Patient clearly understand and agree with all medical treatments and suggestions. All medicines prescribed are adequate and appropriate for this patient's complaint of pain, medical history, physical, and personal goals.Goals of Treatment are to provide adequate and appropriate multidisciplinary medical pain management to increase/ maintain patient's quality of life and functionality while maintaining satisfactory side effect profile andminimizing fdc end-organ damage. Importance of regular nutrition throughout the day discussed.Activity as toleratedContinue with PCP Functional Status Description No Information Available Mental Status Description No Information Available Referrals Description No Information Available
--- OUTSIDE RECORDS SUMMARY | 2019-07-18 20:54 | XMS REPORT | Continuity of Care Document ---
:1980 External Reference #:[id number] Author Name Vivek Mckeon DO MPH Address [address] [place] [address], [address] [place] [address] Care Team Providers Name Role Phone Elliott Evans M.D. - Neurological Care Team Information Sap Consultant Surgery Shilpa Ron V., RESCUE INSTRUCTOR - Nurse Care Team Information Sap Consultant Practitioner Problems Description No Information Available Social History Type Date Description Comments Sex Unknown Cigarette Use Current Cigarette Smoker 1/2 Pack Daily ETOH Use Denies alcohol use Tobacco Use Start: Unknown Patient is a current smoker, smokes every day Smoking Status Reviewed: 05/24/19 Patient is a current smoker, smokes every [...] Available Vital Signs Date Vital Result Comment 05/24/2019 10:03am BP Systolic 128 mmHg BP Diastolic 78 mmHg Heart Rate 74 /min Respiratory Rate 20 /min Height 66 inches 5'6" Weight 202.00 lb Pain Level 6 Pain at this time. Pain Level With Medicine 5 on average with meds Pain Level Without Medicine 9 without meds BMI (Body Mass Index) 32.6 kg/m2 04/25/2019 2:41pm BP Systolic 128 mmHg BP Diastolic 80 mmHg Heart Rate 84 /min Respiratory Rate 20 /min Height 66 inches 5'6" Weight 197.00 lb Pain Level 7 Pain at this time. Pain Level With Medicine 6 on average with meds Pain Level Without Medicine 9 without meds BMI (Body Mass Index) 31.8 kg/m2 Results Description No Information Available Procedures Description No Information Available Medical Devices Description No Information Available Encounters Type Date Location Provider Dx Diagnosis Office Visit 04/25/2019 Main Office as Of Vivek Mckeon DO G89.21 Chronic pain due 2:15p 10/01/13 MPH to trauma M54.5 Low back pain M54.16 Radiculopathy, lumbar region Z79.891 intermediate designer (current) use of opiate analgesic Z79.891 intermediate designer (current) use of opiate analgesic Office Visit 03/25/2019 9:30a Main Office as Vivek Mckeon G89.21 Chronic pain due Of 10/01/13 DO, MPH to trauma M54.5 Low back pain M54.16 Radiculopathy, lumbar region Z79.891 intermediate designer (current) use of opiate analgesic Z79.891 care home (current) use of opiate analgesic Office Visit 02/24/2019 9:45a Main Office as Vivek Mckeon G89.21 Chronic pain due Of 10/01/13 DO, MPH to trauma M54.5 Low back pain M54.16 Radiculopathy, lumbar region Z79.891 intermediate designer (current) use of opiate analgesic Z79.891 intermediate designer (current) use of opiate analgesic Office Visit 02/08/2019 9:30a Main Office as Vivek Mckeon G89.21 Chronic pain due Of 10/01/13 DO, MPH to trauma M54.5 Low back pain M54.16 Radiculopathy, lumbar region Z79.891 care home (current) use of opiate analgesic Z79.891 care home (current) use of opiate analgesic Office Visit 01/27/2019 9:45a Main Office as Vivek Mckeon G89.21 Chronic pain due Of 10/01/13 DO, MPH to trauma M54.5 Low back pain M54.16 Radiculopathy, lumbar region Z79.891 intermediate designer (current) use of opiate analgesic Z71.89 Other specified counseling Z79.891 care home (current) use of opiate analgesic Office Visit 12/29/2018 9:00a Main Office as Vivek Mckeon G89.21 Chronic pain due Of 10/01/13 DO, MPH to trauma M54.5 Low back pain M54.16 Radiculopathy, lumbar region Z79.891 care home (current) use of opiate analgesic Z79.891 care home (current) use of opiate analgesic Office Visit 11/30/2018 9:30a Main Office as Vivek Mckeon G89.21 Chronic pain due Of 10/01/13 DO, MPH to trauma M54.5 Low back pain M54.16 Radiculopathy, lumbar region Z79.891 care home (current) use of opiate analgesic Z79.891 care home (current) use of opiate analgesic Assessments Date Code Description Provider 05/24/2019 G89.21 Chronic pain due to trauma Vivek Mckeon DO, MPH 05/24/2019 M54.5 Low back pain Vivek Mckeon DO, MPH 05/24/2019 Z79.891 intermediate designer (current) use of opiate analgesic Vivek Mckeon DO, MPH 05/24/2019 Z79.891 care home (current) use of opiate analgesic Vivek Mckeon DO, MPH 04/25/2019 G89.21 Chronic pain due to trauma Mckeon, Vivek, DO, MPH 04/25/2019 M54.5 Low back pain Mckeon, Vivek, DO, MPH 04/25/2019 M54.16 Radiculopathy, lumbar region Mckeon, Vivek, DO, MPH 04/25/2019 Z79.891 intermediate designer (current) use of opiate analgesic Mckeon, Vivek , DO, MPH 04/25/2019 Z79.891 care home (current) use of opiate analgesic Mckeon, Vivek , DO, MPH 03/25/2019 G89.21 Chronic pain due to trauma Mckeon, Vivek, DO, MPH 03/25/2019 M54.5 Low back pain Mckeon, Vivek, DO, MPH 03/25/2019 M54.16 Radiculopathy, lumbar region Mckeon, Vivek, DO, MPH 03/25/2019 Z79.891 intermediate designer (current) use of opiate analgesic Mckeon, Vivek , DO, MPH 03/25/2019 Z79.891 care home (current) use of opiate analgesic Mckeon, Vivek , DO, MPH 02/24/2019 G89.21 Chronic pain due to trauma Mckeon, Vivek, DO, MPH 02/24/2019 M54.5 Low back pain Mckeon, Vivek, DO, MPH 02/24/2019 M54.16 Radiculopathy, lumbar region Mckeon, Vivek, DO, MPH 02/24/2019 Z79.891 intermediate designer (current) use of opiate analgesic Mckeon, Vivek , DO, MPH 02/24/2019 Z79.891 care home (current) use of opiate analgesic Mckeon, Vivek , DO, MPH 02/08/2019 G89.21 Chronic pain due to trauma Mckeon, Vivek, DO, MPH 02/08/2019 M54.5 Low back pain Mckeon, Vivek, DO, MPH 02/08/2019 M54.16 Radiculopathy, lumbar region Mckeon, Vivek, DO, MPH 02/08/2019 Z79.891 care home (current) use of opiate analgesic Mckeon, Vivek , DO, MPH 02/08/2019 Z79.891 care home (current) use of opiate analgesic Mckeon, Vivek , DO, MPH 01/27/2019 G89.21 Chronic pain due to trauma Mckeon, Vivek, DO, MPH 01/27/2019 M54.5 Low back pain Mckeon, Vivek, DO, MPH 01/27/2019 M54.16 Radiculopathy, lumbar region Mckeon, Vivek, DO, MPH 01/27/2019 Z79.891 care home (current) use of opiate analgesic Mckeon, Vivek , DO, MPH 01/27/2019 Z71.89 Other specified counseling Mckeon, Vivek, DO, MPH 01/27/2019 Z79.891 care home (current) use of opiate analgesic Mckeon, Vivek , DO, MPH 12/29/2018 G89.21 Chronic pain due to trauma Mckeon, Vivek, DO, MPH 12/29/2018 M54.5 Low back pain Mckeon, Vivek, DO, MPH 12/29/2018 M54.16 Radiculopathy, lumbar region Mckeon, Vivek, DO, MPH 12/29/2018 Z79.891 intermediate designer (current) use of opiate analgesic Mckeon, Vivek , DO, MPH 12/29/2018 Z79.891 intermediate designer (current) use of opiate analgesic Mckeon, Vivek , DO, MPH 11/30/2018 G89.21 Chronic pain due to trauma Mckeon, Vivek, DO, MPH 11/30/2018 M54.5 Low back pain Mckeon, Vivek, DO, MPH 11/30/2018 M54.16 Radiculopathy, lumbar region Mckeon, Vivek, DO, MPH 11/30/2018 Z79.891 care home (current) use of opiate analgesic Mckeon, Vivek , DO, MPH 11/30/2018 Z79.891 care home (current) use of opiate analgesic Mckeon, Vivek , DO, MPH Plan of Treatment Future Appointment(s):06/20/2019 9:30 am - Vivek Mckeon DO, MPH at Main Office as Of 10/01/1408 - MckeonVivek payan DO, MPHG89.21 Chronic pain due to traumaComments:Chronic. Symptoms and complaints discussed and reviewed today. No significant changes in physical findings. Continue current medical pain management.M54.5 Low back painComments:Chronic. Symptoms and complaints discussed and reviewed today.No changes in physical findings. Patient is stable and comfortable when current medical therapy is rendered.Z79.891 intermediate designer ( current) use of opiate analgesicNew Labs:Urine [...] AM, AMPH, LAILA, ТАТЬЯНА, BUP, CARIS, COCM, COT, ETG, FENT, MCSHSG, OPI, OXY, PCP, TAPEN, [...] and ongoing re-assessment of opioid therapy. Per [place] [employer], [place] Non- Acute Pain Medical Treatment Guidelines, section F.3.d.i. This test is to be used in conjunction with other clinical information when decisions are to be made to continue, adjust or discontinue treatment. This information includes clinical observation, results of addiction screening, pill counts, and prescription drug monitoring reports. Preliminary UDT screen results are not final and should not be usedto determine patient care or plan of treatment. [...] while maintaining satisfactory side effect profile andminimizing termite inspector end-organ damage. Importance of regular nutrition throughout the day discussed.Activity as toleratedContinue with PCP Functional Status Description No Information Available Mental Status Description No Information Available Referrals Description No Information Available
[2019-07-18] MEDS ORDERED: Iohexol 350* (CONTRAST) 500 ML MDV IV ONE (21:25)
[2019-07-18] MEDS ORDERED: Aspirin 81 mg CHEW TAB* 81 MG TAB.CHEW PO ONE (21:28)
[2019-07-19] MEDS ORDERED: oxyCODONE TAB* 5 MG TAB PO ONE (00:43)
--- NOTE | 2019-07-19 02:23 | HP ---
History of Present Illness - History of Present Illness Reason for Visit: blurry vision History of Present Illness: 39 year old female with hx of migraine transferred from [place] with complaint of blurry vision of her right eye. It happened suddenly while she was driving. She had a migraine preceding the vision issue. She decribes it as vaseline over her eye. She has no pain. She experienced no other symptoms with it. No floaters. Her migraine dissipated but the blurriness in her eye stayed the same. She also had a syncopal episode today while in class. She had gotten up then fell to the ground. In the ed, CTA was done and came back negative. Ophthalmology was consulted and will see the patient tomorrow. Review of Systems - Measurements Intake and Output: Intake and Output Last 24 Hours 07/16/19 07/17/19 07/18/19 07/19/19 06:59 06:59 06:59 06:59 Weight 200 lb - Review of Systems Constitutional Symptoms: Negative: Weight Gain, Weight Loss, Weakness, Fatigue, Fever, Night Sweats, Unexplained Falls, Other Dermatology: Negative: Normal, Rash, Skin Lesions, Cancer, Skin Lumps, Other HEENT: Negative: Normal, Change in Hearing, Vertigo, Dental Problems, Tinnitus, Sinus Problem, Other Eyes: Positive: Change in Vision Thyroid: Negative: Normal, Goiter, Thyroid Nodule, Cold Intolerance, Heat Intolerance , Sweatiness, Tremor, Frequent Defecation, Constipation, Palpitations, Primary Hypothyroidism, Primary Hyperthyroidism, Weight Loss, Weight Gain, Change in Skin/Hair, Change in Menstruation, Radiation Exposure, Other Pulmonary: Negative: Normal, Cough, Sputum, Hemoptysis, Wheezing, Respiratory Distress, Shortness of Breath, COPD, Asthma, Exercise Intolerance, Home Oxygen, Other Cardiology: Negative: Normal, Chest Pain, Shortness of Breath, Palpitations, Swelling of Ankles, Peripheral Vascular Dis, Edema, Faintness, Syncope, Claudication, Proximal NocturnalDyspnea, Orthopnoea, Other Gastroenterology: Negative: Normal, Abdominal Pain, Nausea, Vomiting, Anorexia, Indigestion, Difficulty Swallowing, Heartburn, Constipation, Diarrhea, Blood in Stools, Change in Bowel Habits, Haematemesis, Melena, Other Genital - Urinary: Negative: Normal, Dysuria, Hematuria, Polyuria, Nocturia, Other Musculoskeletal: Positive: Low Back Pain Neurology: Positive: Migraines Negative: Normal, Headache, Change in Vision, Diplopia, Dizziness, Change in Balancing, Change in Coordination, Change in Memory, Change in Speech, Change in Sphincter Function, Change in Walking, Numbness\Paresthesiae, Unexplained Weakness, Hx of Stroke\TIA, Hx of Seizures, Other Objective Active Medications: Heparin Sodium (Porcine) (Heparin Vial(*)) 5,000 units SUBCUT Q8HR [facility] Vital Signs - 8 hr 07/18/19 19:43 Temperature 98.7 F Pulse Rate 86 Respiratory 16 Rate Blood Pressure 131/88 (mmHg) O2 Sat by Pulse 97 Oximetry Oxygen Devices in Use Now: None Appearance: NID Eyes: No Scleral Icterus, PERRLA Ears/Nose/Mouth/Throat: NL Teeth, Lips, Gums, Clear Oropharnyx, Mucous Membranes Moist Neck: NL Appearance and Movements; NL JVP, Trachea Midline, No Thyroid Enlargement, Masses Respiratory: Symmetrical Chest Expansion and Respiratory Effort, Clear to Auscultation, Clear to Percussion Cardiovascular: NL Sounds; No Murmurs; No JVD, No Edema Abdominal: NL Sounds; No Tenderness; No Distention, No Hepatosplenomegaly Extremities: No Edema Skin: No Rash or Ulcers Neurological: Alert and Oriented x 3, NL Muscle Strength and Tone Assess/Plan/Problems-Billing Assessment: - Patient Problems (1) Blurry vision, right eye Current Visit: Yes Status: Acute Code(s): H53.8 - OTHER VISUAL DISTURBANCES SNOMED Code(s): 139530645 Comment: sudden blurry vision in R eye, painless. Came with migraine. CTA neg Neuro and opthalmology consulted, MRI in the am ESR is low (2) DVT prophylaxis Current Visit: Yes Status: Acute Code(s): Z29.9 - ENCOUNTER FOR PROPHYLACTIC MEASURES, UNSPECIFIED SNOMED Code(s): 233382403 (3) Full code status Current Visit: Yes Status: Acute Code(s): Z78.9 - OTHER SPECIFIED HEALTH STATUS SNOMED Code(s): 292110463
[2019-07-19] MEDS ORDERED: oxyCODONE TAB* 5 MG TAB PO PRN ×2 (03:00→04:06)
[2019-07-19] MEDS: Heparin VIAL(*) 5000 UNITS/ML VIAL (FIVE THOUSAND) SUBCUT SCH ×2 (06:13→13:40)
[2019-07-19] MEDS: Gabapentin CAP(*) 300 MG PO SCH ×2 (07:51→13:39)
[2019-07-19] MEDS ORDERED: Influenza VAC *QUAD* 2019-20* 0.5 ML SYRINGE IM ONE (09:00)
[2019-07-19] MEDS ORDERED: Cyclobenzaprine TAB* 10 MG PO PRN (09:00)
[2019-07-19] MEDS ORDERED: Perflutren Lipid Microsphere* 3 ML VIAL ONE (09:32)
--- NOTE | 2019-07-19 10:14 | ECHO ---
*[facility]* [place] [address] Fax #: [phone] Transthoracic Echocardiogram Patient: Jennifer Pruitt : 1980 Study Date: 07/19/2019 Age: 39 Gender: F HR: 72 bpm Height: 66 in /167.6 cm BSA: 2.02 m^2 Weight: 204.6 lb /93 kg BMI: 33.1 kg/m^2 *[employer]: * Meena Quijano [facility] *Referring Physician: * Maribel De Guzman *Reading Physician: * Nicko Green MD Indications: Syncope. History: Risk factors: Current tobacco use. Obese. Conclusions Summary: - Left ventricle: Systolic function is normal. The estimated ejection fraction is 55-60%. Wall motion is normal; there are no regional wall motion abnormalities. - Mitral valve: There is trace regurgitation. - Aortic valve: There is no evidence of stenosis. - Tricuspid valve: There is physiologic regurgitation. - Pulmonary arteries: Systolic pressure can not be accurately estimated. Study data: Transthoracic echocardiogram. Procedure: Transthoracic echocardiography was performed. Image quality was suboptimal. The study was technically limited due to body habitus. Intravenous Definity , 3 mlswas administered. Complete 2D, spectral Doppler, and color flow Doppler. Location: Bedside. Patient status: Inpatient. Patient room number: 441-01. Rhythm: Normal sinus rhythm. Findings Left ventricle: The cavity size is normal. Wall thickness is normal. Systolic function is normal. The estimated ejection fraction is 55-60%. Wall motion is normal; there are no regional wall motion abnormalities. There is no consistent Doppler evidence of clinically significant diastolic dysfunction. Right ventricle: The cavity size is mildly dilated. Systolic function is normal. Left atrium: The atrium is at the upper limits of normal in size. Right atrium: The atrium is normal in size. Mitral valve: The leaflets are normal thickness. There is no evidence of stenosis. There is trace regurgitation. Aortic valve: The valve is trileaflet. The leaflets are normal thickness. There is no evidence of stenosis. There is no significant regurgitation. Tricuspid valve: The leaflets are normal thickness. There is no evidence of stenosis. There is physiologic regurgitation. Pulmonic valve: The leaflets are normal thickness. There is no evidence of stenosis. There is trace regurgitation. Aorta: Aortic root: The aortic root is appears normal. Ascending aorta: The ascending aorta is appears normal. Aortic arch: The aortic arch is appears normal. Pericardium: A prominent pericardial fat pad is present. There is no significant pericardial effusion. Pulmonary arteries: The main pulmonary artery is normal-sized. Systolic pressure can not be accurately estimated. Systemic veins: Inferior vena cava: The vessel is normal in size. There is (>= 50%) respiratory change in the IVC dimension. Measurements Left ventricle Value Ref Right atrium continued Value Ref MARIANA, LAX 4.7 cm 3.8 - 5.2 SI dim, ES, A4C 4.7 cm 3.4 - 5.3 ESD, LAX 3.3 cm 2.2 - 3.5 Estimated RAP 3 mm Hg --------- FS, LAX 29 % PW, ED, LAX (H) 1.0 cm 0.6 - 0.9 Aortic valve Value Ref FS 29 % Katty diam, ED 2.0 cm --------- PW, ED (H) 1.0 cm 0.6 - 0.9 Peak v, S 1.18 m/sec --------- E', lat katty, TDI 12.8 cm/sec >=10.0 VTI, S 25.4 cm -- ------- E/e', lat katty, 7 Mean grad, S 3.0 mm Hg ----- ---- TDI Peak grad, S 6.0 mm Hg --------- E', med katty, TDI 8.3 cm/sec >=7.0 LVOT/AV, VTI ratio 0.83 -- ------- E/e', med katty, 10 TDI Mitral valve Value Ref E', avg, TDI 10.6 cm/sec Peak E 0.85 m/sec ----- ---- E/e', avg, TDI 8 <=14 Peak A 0.64 m/sec -- ------- Decel time 201 ms --------- LVOT Value Ref Peak grad, D 2.9 mm Hg --------- Peak narda, S 1.12 m/sec Peak E/A ratio 1.3 --------- VTI, S 21.0 cm Peak grad, S 5 mm Hg Pulmonic valve Value Ref Mean grad, S 2 mm Hg Peak v, S 0.81 m/sec --------- Peak grad, S 3.0 mm Hg --------- Ventricular septum Value Ref IVS, ED 0.8 cm 0.6 - 0.9 Aortic root Value Ref Root diam 2.7 cm <3.7 Right ventricle Value Ref MARIANA, LAX 3.0 cm Ascending aorta Value Ref MARIANA minor ax, (H) 3.7 cm 1.9 - 3.5 AAo AP diam, S 2.9 cm --------- A4C mid Aortic arch Value Ref Left atrium Value Ref Arch diam 2.3 cm --------- AP dim, ES 3.80 cm 2.70 - 3.80 Decending aorta Value Ref ML dim, A4C 4.0 cm Leeanne peak narda 0.94 m/sec --------- SI dim, A4C 5.2 cm Vol/bsa, ES, 1-p 25 ml/m^2 11 - 40 Inferior vena cava Value Ref A4C Diam 1.8 cm --------- Vol/bsa, ES, A/L 27 ml/m^2 16 - 34 Right atrium Value Ref SI dim, ES 4.7 cm 3.4 - 5.3 ML dim, ES, A4C 3.8 cm 2.6 - 4.4 Legend: (L) and (H) franklyn values outside specified reference range. Prepared and electronically signed by Nicko Green MD 07/19/2019 10:13
[2019-07-19] MEDS ORDERED: Diazepam TAB(*) 5 MG PO PRN (10:23)
--- NOTE | 2019-07-19 15:06 | PN ---
Subjective Date of Service: 07/19/19 Interval History: Patient stated that her right eye vision greatly improved today though still blurry. Her headache also greatly improved on its own. History reviewed, her vision changes came together with her left sided headache , last 1 day. History of high IOP, not diagnosed as glaucoma. Feeling terrible headache and vision changes yesterday, would like to splash her face to feel better, but fell down, LOC for a few minutes. Objective Active Medications: Cyclobenzaprine HCl (Flexeril Tab*) 10 mg PO DAILY PRN PRN Reason: SPASMS Diazepam (Valium Tab(*)) 5 mg PO ONCE PRN PRN Reason: BEFORE MRI Stop: 07/20/19 10:22 Gabapentin (Neurontin Cap(*)) 300 mg PO TID [facility] Last Admin: 07/19/19 13:39 Dose: 300 mg Heparin Sodium (Porcine) (Heparin Vial(*)) 5,000 units SUBCUT Q8HR [facility] Last Admin: 07/19/19 13:40 Dose: Not Given Oxycodone HCl (Roxycodone Tab*) 10 mg PO Q6H PRN PRN Reason: PAIN - MODERATE Last Admin: 07/19/19 06:50 Dose: 10 mg Oxycodone HCl (Roxycodone Tab*) 20 mg PO Q6H PRN PRN Reason: PAIN - SEVERE Last Admin: 07/19/19 13:00 Dose: 20 mg Vital Signs - 8 hr 07/19/19 07/19/19 07/19/19 07:15 07:51 08:32 Temperature 97.4 F Pulse Rate 78 Respiratory 20 16 16 Rate Blood Pressure 121/76 (mmHg) O2 Sat by Pulse 98 Oximetry 07/19/19 07/19/19 07/19/19 11:15 13:00 13:39 Temperature 97.8 F Pulse Rate 89 Respiratory 16 16 16 Rate Blood Pressure 126/87 (mmHg) O2 Sat by Pulse 98 Oximetry Oxygen Devices in Use Now: None Exam: GEN: sitting on the bed comfortably HEENT: Normocephalic and atraumatic. Sclera anicteric. EOMI. PERRLA. right side vision 20/70 vision field intact Neck: No lymphadenopathy and enlarged thyroid. NO JVD elevation. Lungs: Good respiratory effort and chest expansion. Clear with no added sound. Heart: Normal in rate and rhythm. S1/S2 heard with no murmur, rubs or gallops. Abdomen: Soft, nondistended and nontender. Normal BS heard. Extremities; No swelling, cyanosis or clubbing Neuro: Alert, oriented x3. CN intact. Motor nomral and sensation intact. Assess/Plan/Problems-Billing Assessment: 39 y/o female with history of elevated IOP and migraine, presenting with sudden onset of right eye painless blurry vision, headache and syncope, concerning for ischemic or embolic brain events. - Patient Problems (1) Blurry vision, right eye Current Visit: Yes Status: Acute Code(s): H53.8 - OTHER VISUAL DISTURBANCES SNOMED Code(s): 249724567 Comment: sudden blurry vision in R eye, painless, associated with migraine Differential is still broad right now, including glaucoma, migraine, optic neuritis, ischemic or embolic brain events. was put on aspirin overnight low ESR CTA neg, a/w MRI today a/w MRI and neurology review today (2) Migraine Current Visit: Yes Status: Acute Code(s): G43.909 - MIGRAINE, UNSP, NOT INTRACTABLE, WITHOUT STATUS MIGRAINOSUS SNOMED Code(s): 35343550 Comment: - history of migraine, usually global headache, associated with menses - change in headache this time, left sided, no aura - resolved (3) Syncope Current Visit: Yes Status: Acute Code(s): R55 - SYNCOPE AND COLLAPSE SNOMED Code(s): 522807337 Comment: - likely vasovagal or situational syncope with headache and vision changes - TTE to rule out structural heart disease, normal TTE found (4) DVT prophylaxis Current Visit: Yes Status: Acute Code(s): Z29.9 - ENCOUNTER FOR PROPHYLACTIC MEASURES, UNSPECIFIED SNOMED Code(s): 992639869 Status and Disposition: Inpatient Medicine. Attestation Documenting Resident: Maribel De Guzman Supervising Physician: Linden Aldrich Attending/Supervising Physician Comment: Patient's RT eye blurriness resolving throughout day. Will have neurology consult, and MRI this evening. May be discharged in evening if MRI negative and neurology agrees. Attestation: This service has been performed in part by a resident under the direction of a teaching physician.I, Linden Aldrich, performed the service, or was physically present during the critical, or duran portions of the service, furnished by the resident. I participated in the management of the patient.
[2019-07-19 16:51] VITALS: BP 138/85
--- NOTE | 2019-07-20 10:21 | CONS ---
CONSULTATION REPORT: DATE OF CONSULT: DATE OF DICTATION: 07/20/19 PATIENT OF: "Dr. Marisa Marinelli." HISTORY OF PRESENT ILLNESS: This is a 39-year-old woman with a prior history of headache who presented to [facility] yesterday. [facility] got the history that she had 4 days of headache and right eye blurriness like a thick gel was smeared over it. When she came here, she told staff here as well as myself that it was only for a day and it lasted a day and has now resolved last evening when I saw her. This happened suddenly. She also had a syncopal episode yesterday as well. She has had no prior visual symptoms with her migraines. She has had no migraines recently. She has been stressed at school , but there have been no other triggers for headaches. She has no family history for demyelinating disease or stroke. CT scan at [facility] was negative. Urine beta-hCG was negative. The syncopal episode she had, she described as lightheadedness and then passing out. There were no abnormal movements with this and she is not 100% sure if she completely lost of consciousness, but she wonders whether she was dehydrated. MEDICATIONS: Medicines at home include: 1. Flexeril 10 mg daily. 2. Gabapentin 300 t.i.d. 3. Oxycodone. PHYSICAL EXAM: Temp 97.7, pulse 77, respirations 18, blood pressure 138/85. She is alert and oriented with normal speech and comprehension. Cranial nerves II through XII were intact. Fundi were benign. She had no visual field changes to finger. Motor exam with normal tone, strength, coordination, and gait. Sensation intact to light touch. Reflexes 2 and equal with downgoing toes. Chest: Clear. Cardiovascular: Regular rate and rhythm. Abdomen: Soft with positive bowel sounds. DIAGNOSTIC STUDIES/LAB DATA: Her sed rate was 5. Her CTA here was normal. She had a normal transesophageal echo. She had an MRI last night per Dr. Aldrich that was read as normal. I do not see the report officially in the chart or even the images, so I will double check. IMPRESSION: Jennifer most likely had a migraine with monocular visual loss, possibly was triggered by stress. I would recommend a baby aspirin at this point given the length of time the visual loss occurred and also recommended to the hospitalist to get cardiolipin antibodies. [id number]/[facility] #: [id number] AVA
--- NOTE | 2019-07-20 11:46 | DS ---
CC: Dr. Goldsmith; Dr. Le DISCHARGE SUMMARY: DATE OF ADMISSION: 07/19/19 DATE OF DISCHARGE: 07/19/19 PRIMARY DIAGNOSIS: Migraine with transient visual changes, right eye. SECONDARY DIAGNOSES: 1. Chronic recurrent migraines. 2. Tobacco abuse. 3. Obesity. 4. Recent cholecystectomy. 5. Syncope. 6. Chronic pain. 7. Fibromyalgia. MEDICATIONS ON DISCHARGE: 1. Aspirin 81 mg p.o. daily. 2. OxyContin 20 mg p.o. b.i.d. 3. Oxycodone 10 mg 1 to 2 tabs p.o. q.6 hours p.r.n. pain. 4. Gabapentin 300 mg p.o. t.i.d. 5. Cyclobenzaprine 10 mg p.o. daily p.r.n. HOSPITAL COURSE: A 39-year-old woman who presented with central right eye blurriness that had onset within 24 hours prior to admission. The patient had atypical headache with sharp lightening like pain across her head prior to the onset of this visual loss. Typically, her migraines are bilateral and are not associated with visual loss, but are associated with nausea, vomiting, and photophobia. The patient was admitted due to the concern of vascular event that including retinal vein thrombosis, retinal artery thrombosis. Differential also included optic neuritis, posterior circulation TIA affecting the occipital lobe or pseudotumor cerebri. The patient had a slow resolution over approximately 18 hours of her visual loss. She was seen in consultation by Dr. Le of Neurology, who felt that this was an atypical migraine for this patient. We attempted to obtain an MRI to rule out TIA or infarction or a demyelinating condition. However, the patient had a cholecystectomy in mid May at [facility] and must wait 6 weeks after this to have an MRI due to the possible presence of surgical clips. The outpatient followup plan includes an MRI and a visit with Dr. Le in the office. The patient also has been referred to Ophthalmology for a full funduscopic exam. Other studies during the hospital, the patient was maintained on telemetry because of her syncope and was fond to have some sinus arrhythmia. No other specific arrhythmias were seen. She did have a transthoracic echocardiogram to look for structural heart disease, which could have caused arrhythmia and this showed ejection fraction of 55% to 60%, normal wall motion, no significant valve problems. DISPOSITION: To home with her family, status post observation. ACTIVITY: As tolerated. CONDITION: Stable. DIET: Regular. FOLLOW-UP: Primary care within 1 week, Ophthalmology arranged 07/20/19, Dr. Le within 2 weeks, MRI brain in 2 weeks. The patient was counseled to quit tobacco as this can cause migraines and complications including TIA and stroke. [id number]/[facility] #: [id number] MTDD
== END 2019-07-19 18:42 | disposition home or self-care (01) ==
LOC: ED 19:34 → MED 07-19 01:47 → MEDTELE 07-19 03:48
PROVIDERS: ADMIT Student in an Organized Health Care Education/Training Program; ATTEND Internal Medicine
DX: G43.909 Migraine, unspecified, not intractable, without status migrainosus (principal); H53.8 Other visual disturbances; E66.9 Obesity, unspecified; R55 Syncope and collapse; G89.29 Other chronic pain; M79.7 Fibromyalgia; Z87.19 Personal history of other diseases of the digestive system; Z90.49 Acquired absence of other specified parts of digestive tract; Z79.899 Other long term (current) drug therapy; F17.210 Nicotine dependence, cigarettes, uncomplicated; Z79.82 Long term (current) use of aspirin
CPT/HCPCS: 36415; 70496; 70498; 85652; 93306; 96372; 99284; A9270-GY; G0378; J1644; Q9967